=== PATIENT | female | born 1960 | race Caucasian/White ===

== ENCOUNTER → 2016-08-24 | Outpatient (CLI) | payer OTHER ==
--- NOTE | 2016-08-24 14:04 | MAM ---
EXAM DESCRIPTION: MAMMO BREAST SCREENING BILATERAL CAD, images were reviewed with CAD technology, R2 computer-aided detection. CLINICAL HISTORY: [facility]. COMPARISON: 2013. FINDINGS: Routine views are obtained. Glandular tissue is near completely fatty involuted. No dominant mass, architectural distortion or clustered microcalcification. IMPRESSION: Benign exam. BIRAD CATEGORY: 2 BENIGN RECOMMENDATIONS: FOLLOW-UP: Routine screening mammogram in one year. According to the [employer], yearly mammograms are recommended starting at age 40 and continuing as long as a woman is in good health. Any breast change noted on a breast self-exam should be reported promptly to the patient's healthcare provider. Breast MRI is recommended for women with an approximately 20-25% or greater lifetime risk of breast cancer, including women with a strong family history of breast or ovarian cancer and women who have been treated for Hodgkin's disease. Electronically signed by: Mira Manriquez 08/24/2016 14:03
== END | disposition home or self-care (01) ==
LOC: MAMMO 08:00
PROVIDERS: ATTEND Family Medicine
DX: Z12.31 Encounter for screening mammogram for malignant neoplasm of breast (principal)

== ENCOUNTER 2017-09-10 21:33 | Emergency (ER) | payer SELFPAY ==
--- NOTE | 2017-09-10 21:49 | ED.PDOC ---
History of Present Illness - General Chief Complaint: Neuro Symptoms/Deficits Stated Complaint: right facial numbness Time Seen by Provider: 09/10/17 21:43 Source: patient Exam Limitations: no limitations - History of Present Illness Initial Comments: Patient presents with right facial numbness for 30 minutes. Sudden onset. She has had a headache "all day". No other symptoms. She has atrial fibrillation. Takes ASA 81mg po qd but no other anticoagulants. No previous CVA. Timing/Duration: 1/2 hour Severity: mild Improving Factors: nothing Worsening Factors: nothing Associated Symptoms: denies symptoms Allergies/Adverse Reactions: Allergies NO KNOWN ALLERGY Allergy (Unverified 02/17/13 17:13) Home Medications: Ambulatory Orders Aspirin [Aspirin Adult Low Dose] 81 mg PO QAM #60 tab 01/24/16 Ondansetron HCl [Zofran] 4 mg PO Q6H PRN #10 tab 01/24/16 Promethazine Tab [Phenergan Tablet] 25 mg PO Q6H PRN #15 tab 01/24/16 diltiaZEM HCL CD [Cardizem CD] 120 mg PO QD #30 cap 01/24/16 Ondansetron HCl [Zofran] 4 mg PO Q6HRS #10 tab 09/10/17 Review of Systems - Review of Systems Constitutional: States: no symptoms reported EENTM: States: no symptoms reported Respiratory: States: no symptoms reported Cardiology: States: see HPI Gastrointestinal/Abdominal: States: no symptoms reported Genitourinary: States: no symptoms reported Musculoskeletal: States: no symptoms reported Skin: States: no symptoms reported Neurological: States: see HPI Endocrine: States: no symptoms reported Hematologic/Lymphatic: States: no symptoms reported Past Medical History (General) - Patient Medical History Hx Seizures: No Hx Stroke: No Hx Asthma: No Hx of COPD: No Hx Cardiac Disorders: Yes Hx Congestive Heart Failure: No Hx Pacemaker: No Hx Hypertension: No Hx Diabetes: No Hx MRSA: No - Vaccination History Hx Influenza Vaccination: No Hx Pneumococcal Vaccination: No - Social History Hx Tobacco Use: No Hx Alcohol Use: No Hx Substance Use: No Hx Physical Abuse: No Hx Emotional Abuse: No Family Medical History - Family History Mother Family History: Unknown Living Status: Age at (years of age): 71 Cause of : DM Hx Family Hypertension: Yes Father Living Status: Age at (years of age): 78 Cause of : DM Hx Family Hypertension: Yes Physical Exam - Physical Exam General Appearance: Alert Eye Exam: bilateral normal ENT Exam: normal ENT inspection Neck: non-tender, full range of motion, supple Respiratory: chest non-tender, lungs clear, normal breath sounds Cardiovascular/Chest: normal peripheral pulses, irregularly irregular Gastrointestinal/Abdominal: normal bowel sounds, non tender, soft Back Exam: no CVA tenderness Extremities Exam: non-tender, normal range of motion 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, 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 Exam: normal hearing, normal speech, PERRL Coordination/Gait: normal finger to nose, normal gait, negative Romberg's sign Motor/Sensory: no motor deficit, no sensory deficit, no pronator drift, negative Babinski's sign DTR: 2+: Biceps, left, Biceps, right, Triceps, left, Triceps, right, Brachioradialis, left, Brachioradialis, right, Achilles, left, Achilles, right, Patellar, left, Patellar, right, Babinski, left, Babinski, right Skin Exam: normal color Progress - Progress Progress: 09/10/17 22:59 Laboratory Tests 09/10/17 09/10/17 09/10/17 21:50 21:50 21:50 WBC 8.3 RBC 4.62 Hgb 14.2 Hct 41.7 MCV 90.4 MCH 30.6 MCHC 33.9 RDW 13.5 Plt Count 338 MPV 8.2 Absolute Neuts (auto) 4.60 Absolute Lymphs (auto) 2.90 Absolute Monos (auto) 0.60 Absolute Eos (auto) 0.10 Absolute Basos (auto) 0.10 Neutrophils % 55.9 Lymphocytes % 35.1 Monocytes % 6.8 Eosinophils % 0.8 L Basophils % 1.4 PT 11.4 INR 1.010 PTT (SP) 34.4 Sodium 140 Potassium 3.8 Chloride 102 Carbon Dioxide 27 Anion Gap 14.8 BUN 13 Creatinine 0.67 BUN/Creatinine Ratio 19.4 Random Glucose 147 H Serum Osmolality 282.2 Calcium 10.0 Total Bilirubin 0.6 AST 25 ALT 31 Alkaline Phosphatase 79 Creatine Kinase 79 CK-MB (CK-2) 2.0 CK-MB (CK-2) % Not Reportable Troponin I < 0.02 B-Natriuretic Peptide 10.5 Serum Total Protein 8.3 H Albumin 4.7 Globulin 3.6 H Albumin/Globulin Ratio 1.3 EKG read by me showed NSR with no ST changes nor T wave inversions. No LBBB. Patient's symptoms resolved in the E.D. She had full sensation on the right side of her face during the initial exam and then the subjective decrease in sensation resolved shortly after. She was not in atrial fibrillation and the CT was negative. She has had no history of TIA. The patient's presentation of nausea for most of the day followed by a mild decrease in sensation of the right side of the face with no other neurological findings as well as resolution after zofran, are very atypical for a TIA. Troponin was negative so there is no evidence of cardiac disease. Patient was discharged with follow up orders and E.R. precautions. Departure - Departure Clinical Impression: Numbness, Nausea Disposition: Discharge to Home or Self Care Condition: Good Departure Forms: ED Discharge - Pt. Copy, Patient Portal Self Enrollment Diet: resume usual diet Activity: increase activity as tolerated Prescriptions: Ondansetron HCl [Zofran] 4 mg PO Q6HRS #10 tab Home Medications: Ambulatory Orders Aspirin [Aspirin Adult Low Dose] 81 mg PO QAM #60 tab 01/24/16 Ondansetron HCl [Zofran] 4 mg PO Q6H PRN #10 tab 01/24/16 Promethazine Tab [Phenergan Tablet] 25 mg PO Q6H PRN #15 tab 01/24/16 diltiaZEM HCL CD [Cardizem CD] 120 mg PO QD #30 cap 01/24/16 Ondansetron HCl [Zofran] 4 mg PO Q6HRS #10 tab 09/10/17 Additional Instructions: Return to the E.R. immediately if symptoms happen again. Return to the E.R. for any numbness or weakness anywhere on your body. Return to the E.R. if nausea and vomiting continue for more than 24 hours without the development of diarrhea. Increase your oral fluids. See your regular physician on wednesday.
[2017-09-10] MEDS ORDERED: ONDANSETRON INJ 4 MG/2 ML VIAL IV ONE (22:12)
--- NOTE | 2017-09-10 22:22 | RAD ---
EXAM DESCRIPTION: Chest,1 View CLINICAL HISTORY: right sided weakness COMPARISON: None FINDINGS: Cardiac silhouette is within normal limits. There is blunting of the right costophrenic angle which could be secondary to pleural fluid versus pleural thickening. Aorta is tortuous. EKG leads project over the chest. There is no focal parenchymal or pleural disease. There is no acute osseous process visualized. IMPRESSION: Blunting of the right costophrenic angle could be secondary to pleural fluid versus pleural thickening. 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
--- NOTE | 2017-09-10 22:22 | CT ---
EXAM DESCRIPTION: Head CLINICAL HISTORY: right facial numbness, history of atrial fibrillation COMPARISON: None available TECHNIQUE: Axial CT of the head obtained from the skull apex to the skull base without contrast. FINDINGS: No acute intracranial hemorrhage identified. No mass, mass effect, shift of the midline, abnormal extra-axial fluid collection or CT evidence of acute ischemic change identified. The ventricular system is unremarkable. No acute abnormalities of the basal ganglia, cerebellum, or brainstem. Scattered areas of hypodensity in the supratentorial white matter may represent sequela of chronic small vessel ischemic change. The visualized paranasal sinuses and the mastoids are clear. No skull fracture identified. Visualized orbits and globes are unremarkable. DLP: 859.97 mGy-cm IMPRESSION: 1. No acute intracranial abnormality by CT criteria. This exam was performed according to our departmental dose-optimization program, which includes automated exposure control, adjustment of the mA and/or kV according to patient size and/or use of iterative reconstruction technique. Electronically signed by: Tera Velazquez 09/10/2017 10:21 PM [facility]
[2017-09-11] VITALS: BP 155/91; TEMP 98.6; O2SAT 96
== END 2017-09-10 23:47 | disposition home or self-care (01) ==
LOC: ER 21:33
DX: R20.0 Anesthesia of skin (principal); R11.0 Nausea; Z79.82 Long term (current) use of aspirin
CPT/HCPCS: 36415; 70450; 71045; 80053; 82550; 82553; 83880; 84484; 85025; 85610; 85730; 93005; J2405

== ENCOUNTER 2017-12-31 13:08 | Emergency (ER) | payer SELFPAY ==
--- NOTE | 2017-12-31 13:23 | ED.PDOC ---
History of Present Illness - General Chief Complaint: Neuro Symptoms/Deficits Stated Complaint: confused/chest heaviness Time Seen by Provider: 12/31/17 13:13 Source: patient, family Exam Limitations: clinical condition - History of Present Illness Initial Comments: patient comes in this morning for altered LOC. Per patient she woke up this morning with severe bilateral posterior headache that was a 10 at 10 and sharp and throbbing. Patient has had lifelong headaches but states this was much more severe than her normal headaches. Patient was able to continue with her activities of daily living and started to make her children lunch. Patient states that she sat down in the next thing she remembers the children were telling her that all the water boiled the corn. She was not slouched over in the chair, she did not fall, but she does not remember what had happened. At that time she got up and was able to walk but was very confused and did not know what had happened. From there they brought her into the emergency room. Patient now is alert and oriented to person place and time. She feels generalized weakness but states she just does not feel like herself and still feels confused. She denies any numbness or change sensation to one side of the body versus the other that both of her legs are very weak. She's never had this happen before and family does not report tonic-clonic movement nor loss of bowel or bladder. Patient has a history of hypertension and migraine headaches. She's had a cholecystectomy and hysterectomy. She does not smoke, drink, or take illicit substances. Patient has not had any recent trauma, travel, or altered activities. Prior to today she felt well and denies any fever, chills, cough or cold symptoms. She has no abdominal pain, nausea, vomiting, or dysuria. Patient's arrived and states that he was there when incident happened. She had L facial drooping and was saying her hands were numb. She could only shuffle her feet. Currently she is alert and oriented with no facial droop. She continues to have bilateral lower extremity weakness but now L>R and still 4 /5. She is oriented x 3 and has no other focal deficits. Timing/Duration: 1/2 hour Severity: severe Improving Factors: nothing Worsening Factors: nothing Associated Symptoms: confusion, tingling in legs/feet, weakness Allergies/Adverse Reactions: Allergies NO KNOWN ALLERGY Allergy (Unverified 02/17/13 17:13) Home Medications: Ambulatory Orders Aspirin [Aspirin Adult Low Dose] 81 mg PO QAM #60 tab 01/24/16 Ondansetron HCl [Zofran] 4 mg PO Q6H PRN #10 tab 01/24/16 Promethazine Tab [Phenergan Tablet] 25 mg PO Q6H PRN #15 tab 01/24/16 diltiaZEM HCL CD [Cardizem CD] 120 mg PO QD #30 cap 01/24/16 Ondansetron HCl [Zofran] 4 mg PO Q6HRS #10 tab 09/10/17 Review of Systems - Review of Systems Constitutional: States: weakness. Denies: chills, diaphoresis, fever EENTM: States: no symptoms reported. Denies: eye pain, ear pain, nose pain, throat pain Respiratory: States: no symptoms reported. Denies: cough, short of breath, wheezing Cardiology: States: no symptoms reported. Denies: chest pain, edema, palpitations, syncope Gastrointestinal/Abdominal: States: no symptoms reported. Denies: abdominal pain, diarrhea, vomiting Genitourinary: States: no symptoms reported Neurological: States: see HPI Past Medical History (General) - Patient Medical History Hx Seizures: No Hx Stroke: No Hx Asthma: No Hx of COPD: No Hx Cardiac Disorders: No Hx Congestive Heart Failure: No Hx Pacemaker: No Hx Hypertension: Yes Hx Thyroid Disease: Yes Hx Diabetes: No Hx MRSA: No Surgical History: cholecystectomy Other Surgeries:: Hyst - Vaccination History Hx Tetanus, Diphtheria Vaccination: No Hx Influenza Vaccination: No Hx Pneumococcal Vaccination: No - Social History Hx Tobacco Use: No Hx Alcohol Use: No Hx Substance Use: No Hx Physical Abuse: No Hx Emotional Abuse: No Family Medical History - Family History Mother Family History: Unknown Living Status: Age at (years of age): 71 Cause of : DM Hx Family Hypertension: Yes Father Living Status: Age at (years of age): 78 Cause of : DM Hx Family Hypertension: Yes Physical Exam - Physical Exam General Appearance: Ill Appearing, Obese Eye Exam: bilateral normal ENT Exam: normal ENT inspection, hearing grossly normal, TMs normal, pharynx normal Neck: non-tender, full range of motion, supple, normal inspection, trachea midline Respiratory: chest non-tender, lungs clear, normal breath sounds, no respiratory distress Cardiovascular/Chest: normal peripheral pulses, regular rate, rhythm, no edema, no gallop, no JVD, no murmur Peripheral Pulses: radial,right: 2+, radial,left: 2+, dorsalis pedis,right: 2+, dorsalis pedis,left: 2+ Gastrointestinal/Abdominal: normal bowel sounds, non tender, soft, no organomegaly, no pulsatile mass Back Exam: normal inspection, no CVA tenderness, no vertebral tenderness Extremities Exam: non-tender, normal range of motion, no evidence of injury 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, oriented x 3, other - Harlan Coma Scale of 15. Patient on arrival still seems slightly disoriented as she could not remember what month it was. 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: normal hearing, normal speech, PERRL Motor/Sensory: no sensory deficit, negative Babinski's sign, weak motor strength RLE, weak motor strength LLE, other - motor for bilateral lower extremities is 4/5 DTR: 1+: Patellar, left, Patellar, right, 2+: Biceps, left, Biceps, right Skin Exam: normal color Progress - Progress Progress: 12/31/17 14:23 12/31/17 13:42 UA [URINALYSIS] Stat 12/31/17 13:45 EKG STAT Laboratory Results WBC 6.0 K/mm3 (4.8-10.8) 12/31/17 13:27 RBC 4.44 M/mm3 (4.20-5.40) 12/31/17 13:27 Hgb 13.5 gm/dL (12.0-16.0) 12/31/17 13:27 Hct 40.0 % (36.0-47.0) 12/31/17 13:27 MCV 90.1 fl (81.0-99.0) 12/31/17 13:27 MCH 30.4 pg (27.0-31.0) 12/31/17 13:27 MCHC 33.7 g/dL (33.0-37.0) 12/31/17 13:27 RDW 12.7 % (11.5-14.5) 12/31/17 13:27 Plt Count 294 K/mm3 (130-400) 12/31/17 13:27 MPV 8.3 fl (7.40-10.4) 12/31/17 13:27 Absolute Neuts (auto) 3.10 K/uL (1.8-6.8) 12/31/17 13:27 Absolute Lymphs (auto) 2.30 K/uL (1.0-3.4) 12/31/17 13:27 Absolute Monos (auto) 0.50 K/uL (0.2-0.8) 12/31/17 13:27 Absolute Eos (auto) 0.10 K/uL (0.0-0.4) 12/31/17 13:27 Absolute Basos (auto) 0.10 K/uL (0.0-0.1) 12/31/17 13:27 Neutrophils % 51.3 % (42.0-78.0) 12/31/17 13:27 Lymphocytes % 38.2 % (20.0-50.0) 12/31/17 13:27 Monocytes % 8.2 % (2.0-9.0) 12/31/17 13:27 Eosinophils % 1.3 % (1.0-5.0) 12/31/17 13:27 Basophils % 1.0 % (0.0-2.0) 12/31/17 13:27 PT 12.0 SECONDS (9.4-12.5) 12/31/17 13:27 INR 1.030 12/31/17 13:27 PTT (SP) 34.1 SECONDS (25.1-36.5) 12/31/17 13:27 Sodium 137 mmol/L (135-145) 12/31/17 13:27 Potassium 4.0 mmol/L (3.6-5.0) 12/31/17 13:27 Chloride 103 mmol/L (101-111) 12/31/17 13:27 Carbon Dioxide 26 mmol/L (21-31) 12/31/17 13:27 Anion Gap 12.0 (12-18) 12/31/17 13:27 BUN 13 mg/dL (7-18) 12/31/17 13:27 Creatinine 0.46 mg/dL (0.6-1.3) L 12/31/17 13:27 BUN/Creatinine Ratio 28.3 (10-20) H 12/31/17 13:27 Random Glucose 100 mg/dL (70-105) 12/31/17 13:27 Serum Osmolality 274.0 mOsm/L (275-295) L 12/31/17 13:27 Calcium 9.5 mg/dL (8.4-10.2) 12/31/17 13:27 Total Bilirubin 0.5 mg/dL (0.2-1.0) 12/31/17 13:27 AST 20 IU/L (10-42) 12/31/17 13:27 ALT 26 IU/L (10-60) 12/31/17 13:27 Alkaline Phosphatase 77 IU/L (42-121) 12/31/17 13:27 Creatine Kinase 58 IU/L (26-140) 12/31/17 13:27 CK-MB (CK-2) 1.3 ng/mL (0.0-4.4) 12/31/17 13:27 CK-MB (CK-2) % Not Reportable 12/31/17 13:27 Troponin I < 0.02 ng/mL (0.01-0.05) 12/31/17 13:27 Serum Total Protein 7.2 gm/dL (6.4-8.2) 12/31/17 13:27 Albumin 4.2 g/dl (3.2-5.5) 12/31/17 13:27 Globulin 3.0 gm/dL (2.3-3.5) 12/31/17 13:27 Albumin/Globulin Ratio 1.4 (1.1-1.9) 12/31/17 13:27 Patient Name: ISHAN ESCOBAR Gender: Female Date of : 1960 Referring Physician: MARIA ESTHER JEAN Organization: [facility] [place] Accession Number: [id number] Requested Date: December 31, 2017 13:17 Report Status: Final Requested Procedure: 1 Procedure Description: Head Modality: CT Findings Reporting MD: Ernesto Patton Fellow MD: Not available Dictation Time: Summer Babysitter: Not available 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 CLINICAL HISTORY: headache, confusion COMPARISON: CT head 09/10/2017. TECHNIQUE: Non-helical axial scans through the skull and brain, at 5.0 mm intervals, non-contrast. Axial 2.5 mm reconstructions. Coronal and sagittal 2.0 mm reconstructions. Total Exam DLP: 859.97 mGy-cm. This exam was performed according to our departmental dose-optimization program which includes automated exposure control, adjustment of the mA and/or kV according to patient size and/or use of iterative reconstruction technique; to reduce radiation dose to as low as reasonably achievable (ALARA). FINDINGS: No hemorrhage, no mass-effect, and no midline shift. Normal otto-white matter differentiation. No abnormal radiodense material in the brain parenchyma. Vascular calcifications none; physiologic calcifications in the pineal gland and choroid plexus. No effacement or displacement of the ventricles, CSF spaces, or subdural spaces. No extra axial fluid collection or hemorrhage. No gross abnormalities of the bony calvarium. Included paranasal sinuses and mastoid air cells are well - aerated. IMPRESSION: 1. No hemorrhage, no mass effect, no midline shift. Normal CT scan of the head without IV contrast. 2. CT scans are insensitive for detecting small CVAs in the first 24 hours after onset. Evaluation of the brain stem is also limited. If symptoms persist, consider NON-EMERGENT MRI scan of the brain with diffusion imaging. Electronically signed by: Ernesto Patton MD 12/31/2017 2:15 PM CDT EKG NSR HR or 82 with normal axis and no ST elevation or depression patient is doing much better with continuation of bilateral LE weakness with L> R but no facial droop and no confusion. This appears to be a small CVA vs TIA. As it is resolving and no stroke seen CT we will call development consultant admitting practitioner and see about admitting for evaluation. 12/31/17 14:34 spoke to Emeka Estrada and he requests duplex dopplers now and neuro consult prior to taking to floor. 12/31/17 15:07 dopplers were able to be obtained but MRI cannot secondary to Wednesday and no staff. Spoke to Neuro consult and Dr. Cheek would like transfer as we are unable to get MRI/MRA over the weekend. Will proceed with transfer. Explained to son and patient and all questions answered. Departure - Departure Clinical Impression: Transient ischaemic attack (TIA), and cerebral infarction without residual deficits Disposition: Transfer to Hospital Condition: Good Departure Forms: ED Discharge - Pt. Copy, Patient Portal Self Enrollment Home Medications: Ambulatory Orders Aspirin [Aspirin Adult Low Dose] 81 mg PO QAM #60 tab 01/24/16 Ondansetron HCl [Zofran] 4 mg PO Q6H PRN #10 tab 01/24/16 Promethazine Tab [Phenergan Tablet] 25 mg PO Q6H PRN #15 tab 01/24/16 diltiaZEM HCL CD [Cardizem CD] 120 mg PO QD #30 cap 01/24/16 Ondansetron HCl [Zofran] 4 mg PO Q6HRS #10 tab 09/10/17
--- NOTE | 2017-12-31 14:16 | CT ---
EXAM DESCRIPTION: Head: Computed Tomography. CLINICAL HISTORY: headache, confusion COMPARISON: CT head 09/10/2017. TECHNIQUE: Non-helical axial scans through the skull and brain, at 5.0 mm intervals, non-contrast. Axial 2.5 mm reconstructions. Coronal and sagittal 2.0 mm reconstructions. Total Exam DLP: 859.97 mGy-cm. This exam was performed according to our departmental dose-optimization program which includes automated exposure control, adjustment of the mA and/or kV according to patient size and/or use of iterative reconstruction technique; to reduce radiation dose to as low as reasonably achievable (ALARA). FINDINGS: No hemorrhage, no mass-effect, and no midline shift. Normal otto-white matter differentiation. No abnormal radiodense material in the brain parenchyma. Vascular calcifications none; physiologic calcifications in the pineal gland and choroid plexus. No effacement or displacement of the ventricles, CSF spaces, or subdural spaces. No extra axial fluid collection or hemorrhage. No gross abnormalities of the bony calvarium. Included paranasal sinuses and mastoid air cells are well - aerated. IMPRESSION: 1. No hemorrhage, no mass effect, no midline shift. Normal CT scan of the head without IV contrast. 2. CT scans are insensitive for detecting small CVAs in the first 24 hours after onset. Evaluation of the brain stem is also limited. If symptoms persist, consider NON-EMERGENT MRI scan of the brain with diffusion imaging. Electronically signed by: Ernetso Patton MD 12/31/2017 2:15 PM CDT
[2017-12-31 15:17] VITALS: TEMP 97.2
[2017-12-31] MEDS ORDERED: ALTEPLASE 100 ML ONE (15:22)
--- NOTE | 2017-12-31 15:22 | US ---
EXAM DESCRIPTION: Carotid Duplex CLINICAL HISTORY: TIA/CVA. Headache. Confusion. COMPARISON: None Available. TECHNIQUE: Multiple grayscale, color, and spectral Doppler images of the bilateral carotid systems. FINDINGS: Mild scattered atherosclerotic plaque. All duplex waveforms and velocities are within normal limits on both sides. ICA/CCA ratios are normal. Both vertebral arteries demonstrate antegrade flow. The external carotid arteries are patent. IMPRESSION: 1. Mild atherosclerosis with 0-40% stenosis in both internal carotid arteries by ratio and velocity criteria. Electronically signed by: Shorty Hicks MD 12/31/2017 3:21 PM CDT
[2017-12-31] MEDS ORDERED: ALTEPLASE 50 ML IVS ONE (15:37)
[2017-12-31] MEDS ORDERED: ALTEPLASE (TPA) 100 MG/100 ML VIAL IV ONE (15:39)
[2017-12-31 16:47] VITALS: BP 130/73; O2SAT 99
== END 2017-12-31 16:20 | disposition short-term general hospital (02) ==
LOC: ER 13:08
DX: G45.9 Transient cerebral ischemic attack, unspecified (principal); I10 Essential (primary) hypertension; E07.9 Disorder of thyroid, unspecified; Z79.82 Long term (current) use of aspirin
CPT/HCPCS: 36415; 70450; 80053; 81001; 82550; 82553; 84484; 85025; 85610; 85730; 93005; 93880; J2997

== ENCOUNTER 2018-09-01 22:41 | Emergency (ER) | payer BC ==
--- NOTE | 2018-09-01 23:38 | RAD ---
EXAM DESCRIPTION: Chest,1 View CLINICAL HISTORY: 57 years Female, expressive aphasia, rigidity COMPARISON: None. FINDINGS: No consolidation. No pneumothorax. No significant pleural effusion. Mild elevation of the right hemidiaphragm noted. Cardiomediastinal silhouette is unremarkable. Osseous structures are unremarkable. IMPRESSION: No acute findings. Electronically signed by: Xavier Headley MD 09/01/2018 11:35 PM ARCHITECT NAVAL
--- NOTE | 2018-09-01 23:42 | CT ---
EXAM: CT head without contrast. INDICATION: Expressive aphasia. TECHNIQUE: Contiguous axial CT images of the brain. Intravenous contrast: Absent. DLP 859 mGy-cm. This exam was performed according to our departmental dose-optimization program, which includes automated exposure control, adjustment of the mA and/or kV according to patient size and/or use of iterative reconstruction technique. COMPARISON: 12/31/2017. FINDINGS: Subcutaneous: Unremarkable. No acute intracranial hemorrhage. There are mild left periventricular microvascular changes, similar to the prior. No midline shift. No mass effect. Ventricles: No hydrocephalus. Kaye-white differentiation preserved. Paranasal sinuses/mastoid air cells: Visualized portions are aerated. Bones/orbits: Visualized portions are unremarkable. IMPRESSION: 1. No CT evidence of acute intracranial hemorrhage. Electronically signed by: Isaias Hickman MD 09/01/2018 11:38 PM [facility] Workstation: [id number]
[2018-09-02] MEDS ORDERED: LEVOTHYROXINE SODIUM 0.025 MG TAB PO ONE (00:13)
[2018-09-02 00:24] VITALS: TEMP 97.1
[2018-09-02] MEDS ORDERED: SODIUM CHLORIDE 0.9% 1000ML 1,000 ML IVS ONE (00:34)
--- NOTE | 2018-09-02 01:16 | ED.PDOC ---
History of Present Illness - General Chief Complaint: Neuro Symptoms/Deficits Stated Complaint: pt ashish, had complained of nausea Time Seen by Provider: 09/01/18 22:57 Source: patient Exam Limitations: no limitations - History of Present Illness Initial Comments: The patient is a 57-year-old female presenting to the emergency room secondary to a very unusual clinical syndrome. Symptoms started about 2-1/2 hours prior to arrival starting with a headache primarily on the right side which to her feels like muscle spasms. It is followed by difficulty with openin g her jaw and then with spasms down the neck on the right side and then spreading to all 4 extremities. By the time of her arrival here she felt like she was unable to open her jaw and was having severe difficulty relaxing all 4 extremities which were essentially and extension. No loss of sensation. No loss of consciousness. She was able to indicate yes and no to questions. No difficulties with swallowing. The patient was hyperventilating upon arrival. Again there was no obvious weakness. Deep tendon reflexes were difficult to assess secondary to rigidity of the extremities. No evidence of any cardiovascular compromise. No visual field deficits. Symptoms started abating with IV Ativan. The patient has a history of frequent headaches in the past. She has also had 2 previous somewhat similar episodes in the past with the first being about 9 months ago where she had some right sided facial spasm and tingling that resolved within about an hour and a half. Head CT at that time was negative. Her second episode was about 3 months after that and lasted longer. She was apparently transferred to [facility] for neurological evaluation and stayed about 5 days. It is uncertain what the findings from that stay were. She has not however on any hypotensive blood thinners or seizure- type medications. She does have a history of hypothyroidism that is very poorly controlled. She does have a history of some mild chronic neck pain and did see her primary care doctor who wrote her for baclofen on 26 August. No incontinence. No biting of the tongue. Even after most of the rigidity was gone the patient continued to have some difficulty with relaxation of the muscles with passive movement. Initially it almost looked like a tetany type picture. no history of any trauma to the head or neck within the last year or 2. Timing/Duration: 1-3 hours Severity: severe Improving Factors: nothing Worsening Factors: nothing Allergies/Adverse Reactions: Allergies NO KNOWN ALLERGY Allergy (Unverified 02/17/13 17:13) Home Medications: Ambulatory Orders Aspirin [Aspirin Adult Low Dose] 81 mg PO QAM #60 tab 01/24/16 Ondansetron HCl [Zofran] 4 mg PO Q6H PRN #10 tab 01/24/16 Promethazine Tab [Phenergan Tablet] 25 mg PO Q6H PRN #15 tab 01/24/16 diltiaZEM HCL CD [Cardizem CD] 120 mg PO QD #30 cap 01/24/16 Ondansetron HCl [Zofran] 4 mg PO Q6HRS #10 tab 09/10/17 Review of Systems - Review of Systems Constitutional: States: no symptoms reported EENTM: States: no symptoms reported Respiratory: States: no symptoms reported Cardiology: States: no symptoms reported Gastrointestinal/Abdominal: States: no symptoms reported Genitourinary: States: no symptoms reported Musculoskeletal: States: see HPI Skin: States: no symptoms reported Neurological: States: see HPI Endocrine: States: no symptoms reported All other Systems: No Change from Baseline Past Medical History (General) - Patient Medical History Hx Seizures: No Hx Stroke: Yes Hx Asthma: No Hx of COPD: No Hx Cardiac Disorders: Yes - a-fib Hx Congestive Heart Failure: No Hx Pacemaker: No Hx Hypertension: Yes Hx Thyroid Disease: Yes Hx Diabetes: No Hx MRSA: No Surgical History: cholecystectomy, Hysterectomy, other - Vaccination History Hx Tetanus, Diphtheria Vaccination: Yes Hx Influenza Vaccination: No Hx Pneumococcal Vaccination: No - Social History Hx Tobacco Use: No Hx Alcohol Use: No Hx Substance Use: No Hx Physical Abuse: No Hx Emotional Abuse: No - Female History Patient is a Female of Child Bearing Age (10 -59 yrs old): No Patient : No Family Medical History - Family History Mother Family History: Unknown Living Status: Age at (years of age): 71 Cause of : DM Hx Family Hypertension: Yes Father Living Status: Age at (years of age): 78 Cause of : DM Hx Family Hypertension: Yes Physical Exam - Physical Exam General Appearance: Alert, Anxious, Obvious distress - he patient is hyperventilating and essentially not moving otherwise. Eye Exam: bilateral normal Ears, Nose, Throat: hearing grossly normal, nasal congestion, other - difficulty opening her jaw for oral inspection initially but no obvious lesions when she is able to Neck: other - the patient has significant muscle spasmsurrounding the cervical spine worse on the right posteriorly than elsewhere. She has tenderness to palpation at the junction of the occiput in C1. No definite palpable deformity. No spinous process tenderness. 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 Source of this is not entirely certain however atypical migraine, seizure, increased spasticity from baclofen, cervical spine instability seem to be reasonable for the differential. No recent trauma. Patient's symptoms have largely abated after 2 mg of Ativan. Head CT has failed to show any evidence of any bleed or acute ischemic event. The patient does have significant hypothyroidism and was given an extra 250 g of Synthroid tonight. She has not had her baseline Synthroid dose increased until now. it is uncertain how much the hypothyroidism is contributing to the syndrome. Transferring the patient for neurological evaluation. acceptance is appreciated. Vital signs are stable at this time. - Results/Orders Results/Orders: chest x-ray shows no acute pathology. EKG shows normal sinus rhythm at 88 bpm. Poor R-wave progression in anterior leads. No definitive ST segment changes or T-wave changes indicative of acute ischemia. Normal axis. Normal QT interval. Head CT shows no acute pathology. See reports for details. Laboratory Tests 09/01/18 09/01/18 09/01/18 23:00 23:00 23:00 WBC 7.5 RBC 4.76 Hgb 14.5 Hct 44.1 MCV 92.6 MCH 30.5 MCHC 33.0 RDW 14.0 Plt Count 334 MPV 8.4 Absolute Neuts (auto) 3.70 Absolute Lymphs (auto) 3.00 Absolute Monos (auto) 0.50 Absolute Eos (auto) 0.20 Absolute Basos (auto) 0.10 Neutrophils % 49.6 Lymphocytes % 40.4 Monocytes % 6.9 Eosinophils % 2.1 Basophils % 1.0 PT 9.7 INR 0.97 PTT (SP) 25.2 Sodium 139 Potassium 4.0 Chloride 103 Carbon Dioxide 25 Anion Gap 15.0 BUN 19 H Creatinine 0.67 BUN/Creatinine Ratio 28.4 H Random Glucose 134 H Serum Osmolality 281.8 Calcium 9.6 Magnesium 2.0 Total Bilirubin 0.4 AST 21 ALT 24 Alkaline Phosphatase 87 Creatine Kinase 77 CK-MB (CK-2) 1.8 CK-MB (CK-2) % Not Reportable Troponin I < 0.02 B-Natriuretic Peptide 8.1 Serum Total Protein 8.2 Albumin 4.8 Globulin 3.4 Albumin/Globulin Ratio 1.4 TSH 19.61 H Free T4 09/01/18 23:28 WBC RBC Hgb Hct MCV MCH MCHC RDW Plt Count MPV Absolute Neuts (auto) Absolute Lymphs (auto) Absolute Monos (auto) Absolute Eos (auto) Absolute Basos (auto) Neutrophils % Lymphocytes % Monocytes % Eosinophils % Basophils % PT INR PTT (SP) Sodium Potassium Chloride Carbon Dioxide Anion Gap BUN Creatinine BUN/Creatinine Ratio Random Glucose Serum Osmolality Calcium Magnesium Total Bilirubin AST ALT Alkaline Phosphatase Creatine Kinase CK-MB (CK-2) CK-MB (CK-2) % Troponin I B-Natriuretic Peptide Serum Total Protein Albumin Globulin Albumin/Globulin Ratio TSH Free T4 0.77 Departure - Departure Clinical Impression: Muscle spasticity, Recurrent headache Hypothyroidism Qualifiers: Hypothyroidism type: unspecified Qualified Code(s): E03.9 - Hypothyroidism, unspecified Disposition: Transfer to Hospital Home Medications: Ambulatory Orders Aspirin [Aspirin Adult Low Dose] 81 mg PO QAM #60 tab 01/24/16 Ondansetron HCl [Zofran] 4 mg PO Q6H PRN #10 tab 01/24/16 Promethazine Tab [Phenergan Tablet] 25 mg PO Q6H PRN #15 tab 01/24/16 diltiaZEM HCL CD [Cardizem CD] 120 mg PO QD #30 cap 01/24/16 Ondansetron HCl [Zofran] 4 mg PO Q6HRS #10 tab 09/10/17 Transfer to Outside Facility - Transfer Information Accepting Provider:: dr phillips Accepting Facility: [facility] Reason for Transfer: required specialist not available
[2018-09-02 01:25] VITALS: O2SAT 97
[2018-09-02 01:45] VITALS: BP 135/89
== END 2018-09-02 01:45 | disposition short-term general hospital (02) ==
LOC: ER 22:41
DX: E03.9 Hypothyroidism, unspecified (principal); M62.838 Other muscle spasm; R51 Headache; I48.91 Unspecified atrial fibrillation; I10 Essential (primary) hypertension; Z79.82 Long term (current) use of aspirin; Z79.899 Other long term (current) drug therapy; Z86.73 Personal history of transient ischemic attack (TIA), and cerebral infarction without residual deficits
CPT/HCPCS: 70450; 71045; 80053; 82550; 82553; 83735; 83880; 84439; 84443; 84484; 85025; 85610; 85730; 93005; J2060; J7030

== ENCOUNTER 2019-04-01 09:09 | Emergency (ER) | payer BC ==
[2019-04-01] MEDS ORDERED: NITROGLYCERIN 0.4 MG 25 EA TAB SL ONE (09:16)
[2019-04-01] MEDS ORDERED: SODIUM CHLORIDE 0.9% (FLUSH) 10 ML SYG IV PRN (09:16)
[2019-04-01] MEDS ORDERED: ASPIRIN TABLET 325 MG TAB PO ONE (09:16)
[2019-04-01] MEDS ORDERED: ONDANSETRON INJ 4 MG/2 ML VIAL IV ONE ×2 (09:16→09:43)
[2019-04-01] MEDS ORDERED: MORPHINE SULFATE INJ 10 MG/ML VIAL IV ONE (09:43)
--- NOTE | 2019-04-01 09:51 | ED.PDOC ---
History of Present Illness - General Chief Complaint: Chest Pain/NV Stated Complaint: Chest pain Time Seen by Provider: 04/01/19 09:14 Source: patient, RN notes reviewed, Vital Signs reviewed, RN/MD Exam Limitations: no limitations - History of Present Illness Initial Comments: Patient is a 58 yo F with a hx of atrial fibrillation present with chest pain and headache while at work today. She states that she was sitting at a desk and felt like her heart was trying to jump out of her chest. She states that she has not missed a dose of her cardizem. She denies previous hx of cardiac disease. She notes that she has pressure in the substernal region without radiation. She became nauseated and diaphoretic with the pain. She did also have emesis. Patient denies cough, congestion, leg swelling, leg pain, hx of blood clots, family hx of blood clots, recent travel, recent surgeries, or hx of cancer. Patient does have family hx of CAD with in parents in 40's. Timing/Duration: 1 hour Severity/Quality: moderate, pressure Location: substernal Chest Pain Radiation: no radiation Activities at Onset: rest Prior Chest Pain/Cardiac Workup: no prior chest pain Improving Factors: nothing Worsening Factors: nothing Nitro Today/Relief: no nitro taken today Aspirin Treatment Today: no aspirin today Associated Symptoms: diaphoresis, nausea/vomiting Allergies/Adverse Reactions: Allergies NO KNOWN ALLERGY Allergy (Unverified 02/17/13 17:13) Home Medications: Ambulatory Orders Diltiazem HCl Coated Beads [Cartia Xt] 180 mg PO DAILY 09/02/18 Levothyroxine Sodium 125 mcg PO DAILY 09/02/18 Methocarbamol [Robaxin] 750 mg PO DAILY 09/02/18 Tramadol HCl 50 mg PO PRN 09/02/18 Review of Systems - Review of Systems Constitutional: States: diaphoresis EENTM: States: no symptoms reported Respiratory: States: no symptoms reported. Denies: cough, short of breath Cardiology: States: chest pain, palpitations. Denies: syncope Gastrointestinal/Abdominal: States: nausea, vomiting. Denies: abdominal pain Genitourinary: States: no symptoms reported Musculoskeletal: Denies: back pain Skin: Denies: rash Neurological: States: headache Past Medical History (General) - Patient Medical History Hx Seizures: No Hx Stroke: Yes - TIA Hx Asthma: No Hx of COPD: No Hx Cardiac Disorders: Yes - A fib Hx Congestive Heart Failure: No Hx Pacemaker: No Hx Hypertension: Yes Hx Thyroid Disease: Yes Hx Diabetes: No Hx MRSA: No Surgical History: appendectomy, cholecystectomy, Hysterectomy - Vaccination History Hx Tetanus, Diphtheria Vaccination: Yes Hx Influenza Vaccination: No Hx Pneumococcal Vaccination: No - Social History Hx Tobacco Use: No Hx Alcohol Use: No Hx Substance Use: No Hx Physical Abuse: No Hx Emotional Abuse: No - Female History Patient : No Family Medical History - Family History Father Living Status: Age at (years of age): 78 Cause of : DM Hx Family Hypertension: Yes Mother Family History: Unknown Living Status: Age at (years of age): 71 Cause of : DM Hx Family Hypertension: Yes Physical Exam - Physical Exam General Appearance: Alert, Well Developed, Well Groomed, Well Hydrated, Well Nourished, Other - Uncomfortable Eyes, Ears, Nose, Throat Exam: PERRL/EOMI Neck: full range of motion, supple, normal inspection Respiratory: lungs clear, normal breath sounds, no respiratory distress, no accessory muscle use Cardiovascular/Chest: no edema, no gallop, no JVD, no murmur, tachycardia, irregularly irregular Peripheral Pulses: radial,right: 2+, radial,left: 2+, dorsalis pedis,right: 2+, dorsalis pedis,left: 2+, posterior tibialis,right: 2+, posterior tibialis,left: 2+ Gastrointestinal/Abdominal: normal bowel sounds, non tender, soft Extremity: normal range of motion, non-tender, no pedal edema, no calf tenderness Neurologic: alert, normal mood/affect, oriented x 3 Skin Exam: normal color, warm/dry Progress - Progress Progress: DDx: Atrial fibrillation w/RVR, pneumonia, PE, ACS, aortic dissection, NSTEMI 04/01/19 09:48 Evaluated patient. Ordered morphine for pain and zofran for nausea. Will administer Cardizem to rate control and repeat EKG. Patient updated on CXR. Patient presented with chest pain that began today. Initial EKG was significant with atrial fibrillation with RVR, which improved after IV Cardizem bolus. Repeat EKG was significant for rated controlled atrial fibrillation without ischemic changes. Initial cardiac work-up was found to be negative. CXR was not significant for ischemic changes. CBC and CMP were WNL. Patient had no risk factors for PE. She has known atrial fibrillation and is on eliquis. She had resolution in pain once rate was controlled. Her rate continued to sustain without additional Cardizem. Repeat two hour delta troponin was found to be negative. Her rate remained controlled. Given normal cardiac work-up and known hx of atrial fibrillation with home PO cardizem, patient will be discharged home with plans for outpatient follow-up. - Results/Orders Results/Orders: 04/01/19 09:16 IV Care:Saline Lock per Protoc QSHIFT Telemetry .ONCE EKG Stat Pulse Ox Stat 04/01/19 09:45 EKG STAT 04/01/19 10:00 EKG .ONCE Laboratory Results - last 24 hr 04/01/19 04/01/19 09:16 11:17 WBC 6.4 RBC 4.91 Hgb 15.0 Hct 45.2 MCV 92.0 MCH 30.5 MCHC 33.2 RDW 13.6 Plt Count 316 MPV 8.2 Absolute Neuts (auto) 3.40 Absolute Lymphs (auto) 2.40 Absolute Monos (auto) 0.50 Absolute Eos (auto) 0.10 Absolute Basos (auto) 0.10 Neutrophils % 53.4 Lymphocytes % 36.9 Monocytes % 7.2 Eosinophils % 1.0 Basophils % 1.5 PT 9.9 INR 0.99 PTT (SP) 27.8 Sodium 139 Potassium 3.8 Chloride 102 Carbon Dioxide 24 Anion Gap 16.8 BUN 14 Creatinine 0.65 BUN/Creatinine Ratio 21.5 H Random Glucose 127 H Serum Osmolality 279.6 Calcium 9.7 Magnesium 1.8 Creatine Kinase 79 CK-MB (CK-2) 2.0 CK-MB (CK-2) % Not Reportable Troponin I < 0.02 < 0.02 B-Natriuretic Peptide 14.4 - EKG/XRAY/CT EKG: Atrial, Fibrillation, RVR, nonspecific ST T wave Chg Comments: Repeat EKG did not show ST changes with rate control XRAY: chest - No acute cardiopulmonary disease Departure - Departure Clinical Impression: Palpitations Atrial fibrillation Qualifiers: Atrial fibrillation type: unspecified Qualified Code(s): I48.91 - Unspecified atrial fibrillation Time of Disposition: 12:35 Disposition: Discharge to Home or Self Care Condition: Good Departure Forms: ED Discharge - Pt. Copy, Patient Portal Self Enrollment Instructions: DI for Chest Pain Diet: resume usual diet Activity: increase activity as tolerated Home Medications: Ambulatory Orders Diltiazem HCl Coated Beads [Cartia Xt] 180 mg PO DAILY 09/02/18 Levothyroxine Sodium 125 mcg PO DAILY 09/02/18 Methocarbamol [Robaxin] 750 mg PO DAILY 09/02/18 Tramadol HCl 50 mg PO PRN 09/02/18 Comments: Rene Sinha D.O. [facility] #[id number]
--- NOTE | 2019-04-01 10:00 | RAD ---
EXAM: XR Chest, 2 Views CLINICAL HISTORY: CP TECHNIQUE: Frontal and lateral views of the chest. COMPARISON: 09/01/2018. FINDINGS: Limitations: None. Lungs: Unremarkable. No consolidation. Pleural space: Unremarkable. No pneumothorax. Heart: Unremarkable. No cardiomegaly. Mediastinum: Unremarkable. Bones/joints: Unremarkable. Upper abdomen: Stable right diaphragmatic elevation. IMPRESSION: No acute findings in the chest. Electronically signed by: Lorenza Mckeon MD 04/01/2019 9:59 AM CDT
[2019-04-01 12:41] VITALS: O2SAT 98
[2019-04-01 13:07] VITALS: BP 133/89; TEMP 96.4
== END 2019-04-01 12:52 | disposition home or self-care (01) ==
LOC: ER 09:09
DX: I48.91 Unspecified atrial fibrillation (principal); R00.2 Palpitations; R00.0 Tachycardia, unspecified; R07.2 Precordial pain; R51 Headache; R11.2 Nausea with vomiting, unspecified; I10 Essential (primary) hypertension; E07.9 Disorder of thyroid, unspecified; Z86.73 Personal history of transient ischemic attack (TIA), and cerebral infarction without residual deficits; Z79.899 Other long term (current) drug therapy; Z82.49 Family history of ischemic heart disease and other diseases of the circulatory system
CPT/HCPCS: 71046; 80048; 82550; 82553; 83880; 84484; 85025; 85610; 85730; 93005; J2270; J2405

== ENCOUNTER → 2019-10-19 | Outpatient (CLI) | payer BC ==
--- NOTE | 2019-10-19 10:14 | RAD ---
Two-view radiograph right hip Indication: HIP PAIN Comparison: February 17, 2013 Impression: [id number] right hip osteoarthritis with joint space narrowing and tiny osteophyte formation. Mild cam deformity. No acute fracture identified. MRI could better evaluate as clinically indicated. Electronically signed by: Wilmar Colunga MD 10/19/2019 10:12 AM CDT
== END ==
LOC: RAD 09:54
PROVIDERS: ATTEND Family Medicine
DX: M16.11 Unilateral primary osteoarthritis, right hip (principal); M21.861 Other specified acquired deformities of right lower leg; M25.751 Osteophyte, right hip

== ENCOUNTER 2020-07-10 08:23 | Emergency (ER) | payer BC ==
[2020-07-10] MEDS ORDERED: SODIUM CHLORIDE 0.9% 1000ML 1,000 ML IVS ONE ×2 (08:47→10:33)
[2020-07-10] MEDS ORDERED: KETOROLAC TROMETHAMINE INJ 30 MG/ML VIAL IV ONE (08:47)
[2020-07-10] MEDS ORDERED: ONDANSETRON INJ 4 MG/2 ML VIAL IV ONE (08:47)
[2020-07-10] MEDS ORDERED: DEXAMETHASONE INJ 10 MG/ML VIAL IV ONE (08:48)
--- NOTE | 2020-07-10 08:55 | ED.PDOC ---
History of Present Illness - General Chief Complaint: Respiratory Problem Stated Complaint: covid, n/v/d Time Seen by Provider: 07/10/20 08:41 - History of Present Illness Initial Comments: 59 F + COVID19 last week presents with to ED c/o continued n/v with inability to keep food/liquids down. Pt states she feels dehydrated and has not been able to keep hydrated or fed. Associated cough, congestion, body aches, fatigue, loss of smell. Denies associated CP, SOB. No h/o similar sx's. No alleviating/aggravating factors. Pt is otherwise healthy with no other signs, symptoms, or complaints. Allergies/Adverse Reactions: Allergies NO KNOWN ALLERGY Allergy (Unverified 02/17/13 17:13) Home Medications: Ambulatory Orders Diltiazem HCl Coated Beads [Cartia Xt] 180 mg PO DAILY 09/02/18 Levothyroxine Sodium 125 mcg PO DAILY 09/02/18 Methocarbamol [Robaxin] 750 mg PO DAILY 09/02/18 Tramadol HCl 50 mg PO PRN 09/02/18 Dexamethasone Tab [Decadron Tab] 4 mg PO DAILY #5 tab 07/10/20 Ondansetron Tab [Zofran Tab] 4 mg PO TID PRN #15 tab 07/10/20 Review of Systems - Review of Systems Constitutional: States: chills, fever, other - fatigue EENTM: States: nose congestion. Denies: throat pain Respiratory: States: cough. Denies: short of breath Cardiology: Denies: chest pain, edema Gastrointestinal/Abdominal: States: abdominal pain, nausea, vomiting. Denies: constipation, diarrhea Genitourinary: States: frequency - decreased, other - no urgency. Denies: dysuria Musculoskeletal: States: other - body aches Skin: States: change in color. Denies: rash Neurological: Denies: headache, paresthesia Hematologic/Lymphatic: Denies: easy bruising Past Medical History (General) - Patient Medical History Hx Seizures: No Hx Stroke: Yes - TIA Hx Asthma: No Hx of COPD: No Hx Cardiac Disorders: Yes - A fib Hx Congestive Heart Failure: No Hx Pacemaker: No Hx Hypertension: Yes Hx Thyroid Disease: Yes Hx Diabetes: No Hx MRSA: No Surgical History: appendectomy, cholecystectomy, Hysterectomy - Vaccination History Hx Tetanus, Diphtheria Vaccination: Yes Hx Influenza Vaccination: No Hx Pneumococcal Vaccination: No - Social History Hx Tobacco Use: No Hx Alcohol Use: No Hx Substance Use: No Hx Physical Abuse: No Hx Emotional Abuse: No - Female History Patient : No Family Medical History - Family History Mother Family History: Unknown Living Status: Age at (years of age): 71 Cause of : DM Hx Family Hypertension: Yes Father Living Status: Age at (years of age): 78 Cause of : DM Hx Family Hypertension: Yes Physical Exam - Physical Exam General Appearance: Alert, Other - decreased skin turgor with dry oral mucosa, appears to feel ill but non toxic, no diaphoresis, mild distress Eye Exam: bilateral normal, bilateral other - no scleral icterus bilaterally Ears, Nose, Throat: normal pharynx Neck: full range of motion, supple, normal inspection, other - No JVD Respiratory: lungs clear, normal breath sounds, no respiratory distress, no accessory muscle use Cardiovascular/Chest: normal peripheral pulses, regular rate, rhythm, no edema, no gallop, no JVD, no murmur Gastrointestinal/Abdominal: normal bowel sounds, soft, no pulsatile mass, other - mild generalized TTP, no rebound, no guarding, no peritoneal signs Extremity: normal inspection, no pedal edema Neurologic: alert, normal mood/affect, oriented x 3 Skin Exam: normal color, warm/dry, other - decreased skin turgor Progress - Progress Progress: Akhil Quesada DO Emergency Medicine Physician [id number] Appropriate PPE of surgical mask, gown, gloves, and eye protection (if encounter >5 minutes) utilized with every patient encounter; in accordance with hospital policy. Presents for dehydration secondary to COVID19. I will perform labs, ekg provide appropriate pharmacotherapy, and continue to monitor/reassess. Dispo will depend on imaging results and overall course in ED; however, discharge home is expected with f/u, education, and possible rx. 07/10/20 10:31 Rechecked pt with spouse at bedside. NAD, VSS, and is feeling much better. 07/10/20 18:36 Rechecked pt with family at bedside. NAD, VSS, resting comfortabl y in bed and is feeling better. I have discussed lab and EKG results, my clinical impression, and diagnosis. I have also discussed plan for discharge home with f/u, education, and prescription medications. ED return precautions provided. Pt voices understanding, agrees with plan, and all questions answered. - Results/Orders Results/Orders: 07/10/20 09:00 EKG STAT Laboratory Results - last 24 hr 07/10/20 07/10/20 07/10/20 09:10 09:10 09:25 WBC 5.3 RBC 4.38 Hgb 12.9 Hct 39.4 MCV 89.8 MCH 29.5 MCHC 32.9 L RDW 13.5 Plt Count 215 MPV 8.5 Absolute Neuts (auto) 3.90 Absolute Lymphs (auto) 0.80 L Absolute Monos (auto) 0.40 Absolute Eos (auto) 0.10 Absolute Basos (auto) 0.00 Neutrophils % 73.6 Lymphocytes % 15.8 L Monocytes % 7.8 Eosinophils % 2.4 Basophils % 0.4 Sodium 140 Potassium 3.8 Chloride 103 Carbon Dioxide 27 Anion Gap 13.8 BUN 17 Creatinine 0.73 BUN/Creatinine Ratio 23.3 H Random Glucose 118 H Serum Osmolality 282.0 Calcium 8.5 Magnesium 2.2 Total Bilirubin 0.5 AST 41 ALT 56 Alkaline Phosphatase 90 Serum Total Protein 7.3 Albumin 3.7 Globulin 3.6 H Albumin/Globulin Ratio 1.0 L Urine Color Yellow Urine Appearance Sl cloudy Urine pH 6.0 Ur Specific [place] >= 1.030 Urine Protein 100 H Urine Glucose (UA) Negative Urine Ketones Negative Urine Blood Trace-intact H Urine Nitrite Negative Urine Bilirubin Negative Urine Urobilinogen 1.0 Ur Leukocyte Esterase Negative Urine RBC 1-3 Urine WBC 5-10 H Ur Epithelial Cells 10-20 Urine Bacteria 1+ Urine Mucus Moderate Vital Signs - 24 hr 07/10/20 07/10/20 07/10/20 08:30 09:30 12:07 Temperature 97.2 F L 97.9 F Pulse Rate [ 90 76 76 left brachial] Respiratory 18 16 18 Rate Blood Pressure 135/83 112/73 113/65 [left brachial] O2 Sat by Pulse 93 L 95 96 Oximetry - EKG/XRAY/CT EKG: Sinus, nonspecific ST T wave Chg Comments: @0840: NSR @ 84, nl axis, intervals wnl, no ST elev/depression, no STEMI Departure - Departure Clinical Impression: COVID-19 virus infection, Dehydration Nausea & vomiting Qualifiers: Vomiting type: unspecified Vomiting Intractability: non-intractable Qualified Code(s): R11.2 - Nausea with vomiting, unspecified Time of Disposition: 10:35 Disposition: Discharge to Home or Self Care Condition: Fair Departure Forms: ED Discharge - Pt. Copy, Patient Portal Self Enrollment Instructions: Dehydration, Adult (DC), Nausea and Vomiting, Adult (DC), Coronavirus Disease 2019 (COVID-19) (DC) Diet: bland diet Referrals: Your, Primary Care Physician [Other] - 1-2 Weeks (Follow up with your primary care doctor in 5-7 days; or as early as he will allow you due to the active COVID19 infection.) Prescriptions: Dexamethasone Tab [Decadron Tab] 4 mg PO DAILY #5 tab Ondansetron Tab [Zofran Tab] 4 mg PO TID PRN #15 tab PRN Reason: Nausea/Vomiting Home Medications: Ambulatory Orders Diltiazem HCl Coated Beads [Cartia Xt] 180 mg PO DAILY 09/02/18 Levothyroxine Sodium 125 mcg PO DAILY 09/02/18 Methocarbamol [Robaxin] 750 mg PO DAILY 09/02/18 Tramadol HCl 50 mg PO PRN 09/02/18 Dexamethasone Tab [Decadron Tab] 4 mg PO DAILY #5 tab 07/10/20 Ondansetron Tab [Zofran Tab] 4 mg PO TID PRN #15 tab 07/10/20
[2020-07-10 12:09] VITALS: BP 113/65; TEMP 97.9; O2SAT 96
== END 2020-07-10 12:07 | disposition home or self-care (01) ==
LOC: ER 08:23
DX: U07.1 COVID-19 (principal); E86.0 Dehydration; I48.91 Unspecified atrial fibrillation; I10 Essential (primary) hypertension; E07.9 Disorder of thyroid, unspecified; Z90.49 Acquired absence of other specified parts of digestive tract; Z86.73 Personal history of transient ischemic attack (TIA), and cerebral infarction without residual deficits; Z79.899 Other long term (current) drug therapy
CPT/HCPCS: 36415; 80053; 81001; 83735; 85025; 93005; J1100; J1885; J2405; J7030